=== PATIENT | female | born 1975 | race American Indian/Alaskan Native ===

== ENCOUNTER 2017-04-29 10:17 | Outpatient (CLI) | payer OTHER ==
[2017-04-29 11:49] LABS: Bilirubin,Urine NEG (Negative); Blood,Urine NEG (Negative); Ketones,Urine TR mg/dL (Negative); Leukocyte Esterase,Urine NEG (Negative); Mucus,Urine FEW /HPF; Nitrite,Urine NEG (Negative); Protein,Urine <15 mg/dL mg/dL (Negative); Urobilinogen,Urine < 2.0 mg/dL (<2.0)
[2017-04-29 11:51] LABS: Hematocrit 29.3 % (30.3-42.9); Hemoglobin 8.9 gm/dl (10.1-14.3); Mean Corpuscular HGB Conc 30 % (30-34); Red Blood Count 4.73 M/mm3 (3.65-5.03); White Blood Count 7.5 K/mm3 (4.5-11.0)
[2017-04-29 11:55] LABS: Mean Corpuscular Hemoglobin 19 pg (28-32); Mean Corpuscular Volume 62 fl (79-97); Red Cell Distribution Width 21.4 % (13.2-15.2)
[2017-04-29 12:04] LABS: Lactate Dehydrogenase 218 units/L (91-180); Uric Acid 4.2 mg/dL (3.5-7.6)
[2017-04-29 12:23] LABS: Platelet Count 265 K/mm3 (140-440)
[2017-04-29 12:31] VITALS: BP 122/79
== END 2017-04-29 12:40 | disposition home or self-care (01) ==
LOC: TRG 10:17
PROVIDERS: ATTEND Obstetrics & Gynecology
DX: O09.523 Supervision of elderly multigravida, third trimester (principal); Z3A.38 38 weeks gestation of pregnancy
CPT/HCPCS: 36415; 59025; 81001; 82565; 83615; 84450; 84460; 84550; 85027

== ENCOUNTER 2017-05-12 11:49 | Outpatient (CLI) | payer OTHER ==
[2017-05-12 12:20] VITALS: BP 120/73
== END 2017-05-12 13:43 | disposition home or self-care (01) ==
LOC: TRG 11:49
PROVIDERS: ATTEND Obstetrics & Gynecology
DX: O09.523 Supervision of elderly multigravida, third trimester (principal); O48.0 Post-term pregnancy; Z3A.40 40 weeks gestation of pregnancy

== ENCOUNTER 2017-05-13 09:48 | Inpatient (IN) | payer OTHER ==
[2017-05-13] MEDS ORDERED: BENADRYL IV PRN (10:52)
[2017-05-13] MEDS ORDERED: PHENERGAN PR PRN (10:52)
[2017-05-13] MEDS ORDERED: MORPHINE IV PRN (10:52)
[2017-05-13] MEDS ORDERED: ZOFRAN IV PRN (10:52)
[2017-05-13] MEDS: LACTATED RINGERS 1,000 ML IV SCH ×2 (10:52→11:42)
[2017-05-13] MEDS ORDERED: NARCAN 0.4 MG/1 ML IV PRN ×2 (10:52→13:20)
--- NOTE | 2017-05-13 10:52 | Anesthesia Consultation ---
Anesthesia Consult and Med Hx Date of service: 05/13/17 - Airway Anesthetic Teeth Evaluation: Good ROM Head & Neck: Adequate Mental/Hyoid Distance: Adequate Mallampati Class: Class II Intubation Access Assessment: Probably Good - Pre-Operative Health Status ASA Pre-Surgery Classification: ASA2 Proposed Anesthetic Plan: Epidural, Spinal - Pulmonary Hx Asthma: No COPD: No Hx Pneumonia: No - Cardiovascular System Hx Hypertension: No - Central Nervous System Hx Seizures: No Hx Psychiatric Problems: No - Endocrine Hx Renal Disease: No Hx End Stage Renal Disease: No Hx Hypothyroidism: No Hx Hyperthyroidism: No - Hematic Hx Anemia: Yes Hx Sickle Cell Disease: No - Other Systems Hx Alcohol Use: No
[2017-05-13] MEDS ORDERED: TORADOL IV PRN (10:53)
--- NOTE | 2017-05-13 10:54 | Anesthesia Day of Surgery ---
Anesthesia Day of Surgery - Day of Surgery Patient Examined: Yes Patient H&P Reviewed: Yes Patient is NPO: Yes
[2017-05-13] MEDS ORDERED: PEPCID IV NR (11:00)
[2017-05-13] MEDS ORDERED: PITOCin/NS 20 UNIT/1000ML DRIP 20 UNITS/1,000 ML BAG IV SCH ×2 (11:00→14:00)
[2017-05-13] MEDS ORDERED: REGLAN IV NR (11:00)
[2017-05-13] MEDS ORDERED: SODIUM CHLORIDE FLUSH SYRINGE 10 ML IV SCH ×2 (11:00→14:00)
[2017-05-13] MEDS ORDERED: ANCEF/STERILE WATER 2 GM/20 ML 2 GM/20 ML SYRINGE IV NR (11:00)
[2017-05-13] MEDS ORDERED: BICITRA PO NR (11:00)
[2017-05-13 11:28] LABS: Basophils % (Auto) 0.5 % (0.0-1.8); Eosinophils % (Auto) 0.7 % (0.0-4.3); Mean Corpuscular HGB Conc 30 % (30-34); Red Blood Count 4.84 M/mm3 (3.65-5.03); White Blood Count 8.2 K/mm3 (4.5-11.0)
[2017-05-13 11:30] LABS: Mean Corpuscular Hemoglobin 19 pg (28-32); Mean Corpuscular Volume 62 fl (79-97); Platelet Count 246 K/mm3 (140-440); Red Cell Distribution Width 22.1 % (13.2-15.2)
[2017-05-13] MEDS ORDERED: MORPHINE ONE (12:02)
[2017-05-13] MEDS ORDERED: WATER FOR IRRIG STERILE IR ONE (12:05)
[2017-05-13] MEDS ORDERED: NACL 0.9% IR ONE (12:05)
--- NOTE | 2017-05-13 12:27 | History and Physical Report ---
History of Present Illness Date of examination: 05/13/17 Date of admission: 05/13/17 09:48 Chief complaint: Repeat C Section with BTL History of present illness: Pt is a 41yo BF EDC 05/10/17; EGA 40 3/7 weeks presents for a Repeat C Section with BTL. She received care at [facility] since 11 weeks and course has been complicated by uterine fibroids for which she see's [facility],and previous C Section x 1. records are available and GBS is Negative. Past History Past Medical History: no pertinent history Past Surgical History: section [employer] History: fibroids Social history: no significant social history, - Obstetrical History Expected Date of Delivery: 05/10/17 Actual Gestation: 40 Week(s) 3 Day(s) : 3 Medications and Allergies Allergies Allergy/AdvReac Type Severity Reaction Status Date / Time No Known Allergies Allergy Verified 05/13/17 10:09 Home Medications Medication Instructions Recorded Confirmed Last Taken Type No Known Home Medications [No 05/12/17 05/13/17 Unknown History Reported Home Medications] Active Meds: Active Medications Citric Acid/Sodium Citrate (Bicitra) 30 ml PO ONCE NR Stop: 05/13/17 19:00 Last Admin: 05/13/17 11:43 Dose: 30 ml Diphenhydramine HCl (Benadryl) 12.5 mg IV Q2H PRN PRN Reason: Itching Famotidine (Pepcid) 20 mg IV ONCE NR Stop: 05/13/17 19:00 Last Admin: 05/13/17 11:43 Dose: 20 mg Cefazolin Sodium (Ancef/Sterile Water 2 Gm/20 Ml) 2 gm in 20 mls @ 80 mls/hr IV PREOP NR PRN Reason: Protocol Stop: 05/13/17 19:00 Lactated Ringer's (Lactated Ringers) 1,000 mls @ 2,250 mls/hr IV PREOP SHRUTHI Stop: 05/14/17 11:27 Last Admin: 05/13/17 11:42 Dose: 2,250 mls/hr Oxytocin/Sodium Chloride (Pitocin/Ns 20 Unit/1000ml Drip) 20 units in 1,000 mls @ 0 mls/hr IV TITR SHRUTHI PRN Reason: As Directed Ketorolac Tromethamine (Toradol) 30 mg IV Q6H PRN PRN Reason: Pain, Moderate (4-6) Stop: 05/18/17 10:52 Metoclopramide HCl (Reglan) 10 mg IV ONCE NR Stop: 05/13/17 19:00 Last Admin: 05/13/17 11:43 Dose: 10 mg Morphine Sulfate (Morphine) 2.5 mg IV Q15M PRN PRN Reason: Breakthrough Pain Naloxone HCl (Narcan 0.4 Mg/1 Ml) 0.2 mg IV Q2MIN PRN PRN Reason: Res Rate </= 8 or 02 SAT < 92% Ondansetron HCl (Zofran) 4 mg IV Q8H PRN PRN Reason: Nausea And Vomiting Promethazine HCl (Phenergan) 25 mg NC Q6H PRN PRN Reason: Nausea And Vomiting Sodium Chloride (Sodium Chloride Flush Syringe 10 Ml) 10 ml IV PRN SHRUTHI Review of Systems All systems: negative - Vital Signs Vital signs: Vital Signs Temp Pulse Resp Pulse Ox 98.2 F 87 20 99 05/13/17 10:00 05/13/17 10:00 05/13/17 10:00 05/13/17 10:00 Temp Pulse Resp BP Pulse Ox 98.2 F 83 20 136/85 99 05/13/17 10:00 05/13/17 10:51 05/13/17 10:00 05/13/17 10:51 05/13/17 10:47 - Physical Exam Breasts: Positive: deferred Cardiovascular: Regular rate Lungs: Positive: Clear to auscultation Abdomen: Positive: normal appearance Genitourinary (Female): Positive: normal external genitalia Uterus: Positive: enlarged Extremities: Positive: normal - Obstetrical FHR: category 1 Uterine Contraction Monitor Mode: External Results Result Diagrams: 05/13/17 10:00 Abnormal lab results 05/13/17 Range/Units 10:00 Hgb 9.0 L (10.1-14.3) gm/dl Hct 30.0 L (30.3-42.9) % MCV 62 L (79-97) fl MCH 19 L (28-32) pg RDW 22.1 H (13.2-15.2) % [place] % (Auto) 8.6 H (0.0-7.3) % All other labs normal.
[2017-05-13] MEDS ORDERED: NACL 0.9% 1000 ML 1,000 ML ONE (12:56)
[2017-05-13] MEDS ORDERED: TUCKS PAD TP PRN (13:20)
[2017-05-13] MEDS ORDERED: MYLICON PO PRN (13:20)
[2017-05-13] MEDS ORDERED: TYLENOL PO PRN (13:20)
[2017-05-13] MEDS ORDERED: SENOKOT PO PRN (13:20)
[2017-05-13] MEDS ORDERED: PERCOCET 5/325 PO PRN (13:20)
[2017-05-13] MEDS ORDERED: LANSINOH TP PRN (13:20)
[2017-05-13] MEDS ORDERED: MOTRIN PO PRN (13:20)
[2017-05-13] MEDS ORDERED: NORCO 5/325 PO PRN (13:20)
[2017-05-13] MEDS ORDERED: MILK OF MAGNESIA PO PRN (13:20)
--- NOTE | 2017-05-13 13:25 | Operative Report ---
Operative Report Operative Report: Date of procedure: 05/13/2017 Pre-operative diagnosis: 1. Intrauterine at 40-3/7 weeks 2. Previous 3. Advanced maternal age 4. Uterine fibroids Post-operative diagnosis: Same Procedure name(s): Repeat low transverse section Surgeon: Olu Pineda MD Cinder Block Mason: None Anesthesia: Spinal anesthesia by Dr. Henderson EBL: 800 mL's Findings: A 4208 g male infant Apgars 8 at 1 minute 9 at 5 minutes. Clear amniotic fluid. Normal uterus with uterine fibroids. Normal tubes and ovaries bilaterally. Procedure: After the patient was prepped and draped in usual sterile fashion, and after satisfactory level of epidural anesthesia was obtained, the skin knife was used to make a transverse skin incision through the previous skin scar. The incision was excised down to layer of the fascia, which was nicked in the midline and extended laterally using the Bovie cautery. The rectus muscles were dissected off the rectus fascia both superiorly and inferiorly. The rectus bellies in the midline, and the peritoneum was entered under direct visualization. The peritoneal incision was extended superiorly and inferiorly. A bladder flap was created and the bladder blade was then placed. The uterus was scored in a curvilinear linear fashion, entered in the midline revealing clear amniotic fluid. The 's head was delivered onto the surgical field, and the oropharynx and nasopharynx were bulb suctioned. The rest of the infant's body was delivered, cord was doubly clamped and cut and the was handed to the waiting respiratory team. The placenta was manually removed from the uterus, and the uterus removed from its normal anatomical position. After gentle uterine lavage, the incision was inspected and found to be without extensions. It was then closed in 2 layers using 0 Vicryl suture in a running interlocking fashion, the second layer imbricating the first. After good hemostasis was achieved, copious amounts or irrigation was performed, and the gutters were suctioned free of blood and blood clots. The Tisseel sealant was sprayed across the uterine incision. The uterus was then returned to its normal anatomical position, and after excellent hemostasis assured, the peritoneum was re-approximated using 3-0 Vicryl suture in a running interlocking fashion, and then the rectus muscles were re-approximated using 3-0 Vicryl suture in a [id number] configuration. The fascia was then re-approximated using 0 Vicryl suture in running interlocking fashion. The subcutaneous layer was made hemostatic using Bovie cautery, the Tisseel sealant was sprayed across the fascial incision and the skin edges re- approximated using 4-0 Vicryl suture in a sub-cuticular fashion. Patient tolerated the procedure well was transported to recovery in stable condition.
[2017-05-13] MEDS ORDERED: D5LR 1,000 ML IV SCH (14:00)
[2017-05-13] MEDS ORDERED: NEO SYNEPHRINE/NS Syringe(OR USE) IV ONE (14:30)
[2017-05-13] MEDS ORDERED: ANCEF/NS 1 GM/50 ML 1 GM/50 ML BAG IV SCH (16:00)
--- NOTE | 2017-05-13 16:00 | Post Anesthesia Evaluation ---
- Post Anesthesia Evaluation Patient Participated: Yes Airway Patent: Yes Stable Respiratory Function: Yes Nausea/Vomiting: No Temp > 96.8F: Yes Pain Manageable: Yes Adequeate Hydration: Yes Anesthesia Complications: No Block Receding Appropriately: Yes Patient on Ventilator: No
[2017-05-13] MEDS: ceFAZolin 1 GM in NACL 0.9% 20 ML IV SCH (17:35)
[2017-05-14] MEDS: ceFAZolin 1 GM in NACL 0.9% 20 ML IV SCH (01:35)
[2017-05-14 01:41] LABS: Hematocrit 25.4 % (30.3-42.9); Hemoglobin 7.8 gm/dl (10.1-14.3)
[2017-05-14] MEDS ORDERED: BOOSTRIX IM ONE (06:00)
--- NOTE | 2017-05-14 09:23 | Progress Note ---
Assessment and Plan - Patient Problems (1) Status post repeat low transverse section Onset Date: 05/14/17 Current Visit: Yes Status: Resolved Plan to address problem: A: S/P Repeat C Section - POD #1 Doing well Acute blood loss anemia - stable P: Continue RPOC Anticipate discharge in 24-48hrs (2) Acute blood loss anemia Onset Date: 05/14/17 Current Visit: Yes Status: Resolved Subjective - Subjective Date of service: 05/14/17 Principal diagnosis: s/p Repeat C Section - POD #1 Interval history: Pt is feeling well without complaints, tolerating a liquid diet without nausea or vomiting. Patient reports: appetite normal, voiding normally, pain well controlled, flatus , ambulating normally : doing well, nursing well Objective - Vital Signs Latest vital signs: Vital Signs Temp Pulse Resp BP BP Pulse Ox 05/14/17 04:45 98.5 F 114 H 20 137/79 94 05/14/17 00:40 99.4 F 116 H 20 131/77 97 05/13/17 14:53 97.9 F 91 H 18 117/72 97 05/13/17 14:30 97.6 F 05/13/17 14:25 100 H 13 120/77 98 05/13/17 14:19 109 H 14 140/82 98 05/13/17 14:13 86 16 115/69 100 05/13/17 14:07 80 13 112/67 97 05/13/17 14:01 85 12 111/65 97 05/13/17 14:00 97.5 F L 101 H 16 118/68 05/13/17 13:27 97.0 F L 16 108/58 98 05/13/17 10:51 83 136/85 05/13/17 10:50 90 140/89 05/13/17 10:47 92 H 99 05/13/17 10:42 88 99 05/13/17 10:37 90 100 05/13/17 10:32 91 H 100 05/13/17 10:27 95 H 99 05/13/17 10:22 89 99 05/13/17 10:17 84 100 05/13/17 10:12 87 99 05/13/17 10:08 85 136/86 05/13/17 10:07 93 H 99 05/13/17 10:00 98.2 F 87 20 99 Intake and Output 05/13/17 05/14/17 05/14/17 22:59 06:59 14:59 Intake Total 240 Output Total 950 Balance -710 Intake: Oral 240 Output: Urine 950 Indwelling Catheter 500 Void 450 Other: Total, Intake Amount 120 Total, Output Amount 450 - Exam Breasts: Present: deferred Cardiovascular: Present: Regular rate Lungs: Present: Clear to auscultation Abdomen: Present: normal appearance Uterus: Present: normal, firm, fundal height below umbilicus Extremities: Present: normal Incision: Present: normal, dry, intact, dressed - Labs Labs: Abnormal lab results 05/13/17 05/14/17 Range/Units 10:00 01:06 Hgb 9.0 L 7.8 L (10.1-14.3) gm/dl Hct 30.0 L 25.4 L (30.3-42.9) % MCV 62 L (79-97) fl MCH 19 L (28-32) pg RDW 22.1 H (13.2-15.2) % [place] % (Auto) 8.6 H (0.0-7.3) % Laboratory Tests 05/13/17 05/13/17 05/14/17 10:00 10:00 01:06 WBC 8.2 RBC 4.84 Hgb 9.0 L 7.8 L Hct 30.0 L 25.4 L MCV 62 L MCH 19 L MCHC 30 RDW 22.1 H Plt Count 246 Lymph % (Auto) 28.5 [place] % (Auto) 8.6 H Eos % (Auto) 0.7 Baso % (Auto) 0.5 Lymph # 2.3 [place] # 0.7 Eos # 0.1 Baso # 0.0 Seg Neutrophils % 61.7 Seg Neutrophils # 5.1 Blood Type A POSITIVE Antibody Screen Negative
[2017-05-14] MEDS: FEOSOL PO SCH (10:00)
[2017-05-14] MEDS: PRENATAL VITAMIN PO SCH (10:00)
[2017-05-14] MEDS ORDERED: M-M-R II VACCINE SUB-Q ONE (13:22)
--- NOTE | 2017-05-14 14:26 | Progress Note ---
Subjective Date of service: 05/14/17 Principal diagnosis: s/p Repeat C Section - POD #1 Interval history: 1st POD after Patient is in the bed, comfortable. Pain is well controlled with pain meds. Ambulated well. No residual neurological deficit. No anesthesia complications Objective - Constitutional Vitals: Vital Signs - 12hr 05/14/17 05/14/17 05/14/17 04:44 04:45 08:31 Temperature 98.5 F 99.8 F H Pulse Rate 116 H 114 H 111 H Respiratory 20 18 Rate Blood Pressure 137/79 130/72 Blood Pressure 137/79 [Left] O2 Sat by Pulse 94 94 97 Oximetry - Labs CBC & Chem 7: 05/14/17 01:06 Labs: Abnormal lab results 05/14/17 Range/Units 01:06 Hgb 7.8 L (10.1-14.3) gm/dl Hct 25.4 L (30.3-42.9) %
[2017-05-15] MEDS ORDERED: BOOSTRIX IM ONE (06:05)
--- NOTE | 2017-05-15 10:42 | Progress Note ---
Assessment and Plan - Patient Problems (1) Status post repeat low transverse section Onset Date: 05/14/17 Current Visit: Yes Status: Resolved Plan to address problem: A: S/P Repeat C Section - POD #2 Doing well Acute blood loss anemia - stable P: May go home today. (2) Acute blood loss anemia Onset Date: 05/14/17 Current Visit: Yes Status: Resolved Subjective - Subjective Date of service: 05/15/17 Principal diagnosis: s/p Repeat C Section - POD #2 Interval history: Pt is feeling well without complaints, tolerating a reg diet without nausea or vomiting, ambulating and voiding without difficulty. Patient reports: appetite normal, voiding normally, pain well controlled, flatus , ambulating normally, no nauseated [place]: doing well, nursing well Objective - Vital Signs Latest vital signs: Vital Signs Temp Pulse Resp BP Pulse Ox 05/15/17 07:34 98.5 F 98 H 18 124/71 05/15/17 00:15 98.6 F 71 16 114/68 05/14/17 16:00 98.6 F 101 H 18 132/78 96 Intake and Output 05/14/17 05/15/17 05/15/17 22:59 06:59 14:59 Intake Total 300 Balance 300 Intake: Intake, Free Water 300 - Exam Breasts: Present: deferred Cardiovascular: Present: Regular rate Lungs: Present: Clear to auscultation Abdomen: Present: normal appearance Uterus: Present: normal, firm, fundal height below umbilicus Extremities: Present: normal Incision: Present: normal, dry, intact
--- NOTE | 2017-05-15 11:36 | Discharge Summary ---
Providers - Providers Date of Admission: 05/13/17 09:48 Date of discharge: 05/15/17 Attending physician: REJI SAMUELS Primary care physician: WILBERT WEAVER Hospitalization Reason for admission: section, IUP at term Delivery: Procedure: section, repeat low transverse Episiotomy: none Laceration: none Incision: normal, dry, intact Other procedures: none complications: none Discharge diagnosis: IUP at term delivered Mina baby: male Hospital course: Pt is a 41yo BF EDC 05/10/17; EGA 40 3/7 weeks who presented for a Repeat C Section. She underwent an uncomplicated Repeat C Section which she tolerated well, and by POD #2 she was tolerating a reg diet without nausea or vomiting, ambulating and voiding without difficulty. She was therefore discharged to home on POD #2 in stable condition. Condition at discharge: Good Disposition: DC-01 TO HOME OR SELFCARE - Discharge Diagnoses (1) Status post repeat low transverse section Status: Resolved (2) Acute blood loss anemia Status: Resolved Plan - Discharge Medications Prescriptions: Ferrous Sulfate [Feosol 325 MG tab] 325 mg PO BID #60 tablet HYDROcodone/APAP 5-325 [[place] 5/325] 1 each PO Q6HR PRN #30 tablet PRN Reason: Pain Ibuprofen [Motrin] 800 mg PO Q8HR PRN #30 tablet PRN Reason: Moder Pain Unrelieved By [place] Vit Calc,Iron,Folic [ Vitamins] 1 each PO DAILY #30 tablet - Provider Discharge Summary Activity: routine, no sex for 6 weeks, no heavy lifting 4 weeks, no strenuous exercise Diet: routine Instructions: routine Additional instructions: [] Smoking cessation referral if applicable(refer to patient education folder for contact #) [] Refer to [facility] Booklet Call your doctor immediately for: * Fever > 100.5 * Heavy vaginal bleeding ( >1 pad per hour) * Severe persistent headache * Shortness of breath * Reddened, hot, painful area to leg or breast * Drainage or odor from incision. * Keep incision clean and dry at all times and follow doctor's instructions regarding bathing/showering - Follow up plan Follow up: WILBERT WEAVER MD [Primary Care Provider] - 14 Days
[2017-05-15] MEDS: PRENATAL VITAMIN PO SCH (12:40)
[2017-05-15] MEDS: FEOSOL PO SCH (12:40)
[2017-05-15 16:20] VITALS: BP 128/76
== END 2017-05-15 16:33 | disposition home or self-care (01) | DRG 765 ==
LOC: APU 09:48 → OB 15:14
PROVIDERS: ADMIT Obstetrics & Gynecology; ATTEND Obstetrics & Gynecology
PROC: 10D00Z1 Extraction of Products of Conception, Low, Open Approach (ICD-10-PCS; principal; 2017-05-13)
PROC: 3E0234Z Introduction of Serum, Toxoid and Vaccine into Muscle, Percutaneous Approach (ICD-10-PCS; 2017-05-14)
DX: O34.211 Maternal care for low transverse scar from previous cesarean delivery (principal); D62 Acute posthemorrhagic anemia; O34.13 Maternal care for benign tumor of corpus uteri, third trimester; D25.9 Leiomyoma of uterus, unspecified; Z3A.40 40 weeks gestation of pregnancy; Z37.0 Single live birth; Z23 Encounter for immunization
CPT/HCPCS: 36415; 59025; 85014; 85018; 85025; 86850; 86900; 86901; 90471; 90715; 96360; 99211; C9250; G0463; J0690; J1885; J2270; J2370; J2405; J2590; J2765; J7030; J7120

== ENCOUNTER 2019-08-19 16:34 | Inpatient (IN) | payer OTHER, MEDICAID ==
[2019-08-19 17:04] LABS: Bacteria,Urine 1+ /HPF (Negative); Bilirubin,Urine NEG (Negative); Blood,Urine NEG (Negative); Color,Urine Yellow (Yellow); Mucus,Urine 2+ /HPF; Urobilinogen,Urine < 2.0 mg/dL (<2.0)
[2019-08-19] MEDS ORDERED: LACTATED RINGERS 1,000 ML ONE ×2 (17:45→19:12)
[2019-08-19 17:50] LABS: Hematocrit 29.6 % (30.3-42.9); Mean Corpuscular HGB Conc 30 % (30-34); Red Blood Count 4.71 M/mm3 (3.65-5.03)
[2019-08-19 17:51] LABS: Mean Corpuscular Volume 63 fl (79-97); Red Cell Distribution Width 20.2 % (13.2-15.2)
[2019-08-19 18:01] LABS: Alanine Aminotransferase 9 units/L (7-56); Uric Acid 4.1 mg/dL (3.5-7.6)
[2019-08-19 18:35] LABS: Platelet Count 281 K/mm3 (140-440)
[2019-08-19] MEDS ORDERED: BICITRA ORAL LIQD 30ML PO ONE (19:37)
[2019-08-19] MEDS ORDERED: FAMOTIDINE 20 MG/2 ML INJ IV ONE (19:37)
[2019-08-19] MEDS ORDERED: METOCLOPRAMIDE 10 MG/2 ML INJ IV ONE (19:37)
--- NOTE | 2019-08-19 19:58 | Anesthesia Consultation ---
Anesthesia Consult and Med Hx Date of service: 08/19/19 - Airway Anesthetic Teeth Evaluation: Good ROM Head & Neck: Adequate Mental/Hyoid Distance: Adequate Mallampati Class: Class II Intubation Access Assessment: Probably Good - Pulmonary Exam CTA: Yes - Cardiac Exam Cardiac Exam: RRR - Pre-Operative Health Status ASA Pre-Surgery Classification: ASA3 Proposed Anesthetic Plan: Spinal - Pulmonary Hx Asthma: No COPD: No Hx Pneumonia: No - Cardiovascular System Hx Hypertension: Yes (Pre-eclampsia) - Central Nervous System Hx Seizures: No Hx Psychiatric Problems: No - Endocrine Hx Renal Disease: No Hx End Stage Renal Disease: No Hx Hypothyroidism: No Hx Hyperthyroidism: No - Hematic Hx Anemia: Yes Hx Sickle Cell Disease: No - Other Systems Hx Alcohol Use: No
--- NOTE | 2019-08-19 19:59 | Anesthesia Day of Surgery ---
Anesthesia Day of Surgery - Day of Surgery Patient Examined: Yes Patient H&P Reviewed: Yes Patient is NPO: Yes
[2019-08-19] MEDS ORDERED: ceFAZolin/Water 2 GM/20 ML 2 GM/20 ML SYRINGE IV NR (20:00)
[2019-08-19] MEDS ORDERED: LACTATED RINGERS 1,000 ML IV SCH (20:00)
[2019-08-19] MEDS ORDERED: OXYTOCIN 20 UNIT/1000ML DRIP 20 UNITS/1,000 ML BAG IV SCH ×2 (20:00→23:51)
--- NOTE | 2019-08-19 21:11 | History and Physical Report ---
History of Present Illness Date of examination: 08/19/19 Date of admission: 08/19/19 16:43 Chief complaint: I'm here for a Past History - Obstetrical History : 3 Medications and Allergies Allergies Allergy/AdvReac Type Severity Reaction Status Date / Time No Known Allergies Allergy Verified 05/13/17 10:09 Home Medications Medication Instructions Recorded Confirmed Last Taken Type Ferrous Sulfate [Feosol 325 MG tab] 325 mg PO BID #60 tablet 05/13/17 Unknown Rx HYDROcodone/APAP 5-325 [[place] 1 each PO Q6HR PRN #30 tablet 05/13/17 Unknown Rx 5/325] Ibuprofen [Motrin] 800 mg PO Q8HR PRN #30 tablet 05/13/17 Unknown Rx Vit Calc,Iron,Folic 1 each PO DAILY #30 tablet 05/13/17 Unknown Rx [ Vitamins] Active Meds: Active Medications Oxytocin/Sodium Chloride (Pitocin/Ns 20 Unit/1000ml Drip) 20 units in 1,000 mls @ 0 mls/hr IV TITR SHRUTHI Lactated Ringer's (Lactated Ringers) 1,000 mls @ 2,250 mls/hr IV PREOP SHRUTHI Stop: 08/20/19 20:27 Last Admin: 08/19/19 20:08 Dose: 2,250 mls/hr Documented by: Cefazolin Sodium (Ancef/Sterile Water 2 Gm/20 Ml) 2 gm in 20 mls @ 80 mls/hr IV PREOP NR; Protocol Stop: 08/19/19 23:59 Last Admin: 08/19/19 20:08 Dose: 80 mls/hr Documented by: - Vital Signs Vital signs: Vital Signs Temp Pulse Resp BP Pulse Ox 98.4 F 101 H 20 152/81 96 08/19/19 17:01 08/19/19 17:01 08/19/19 17:01 08/19/19 17:01 08/19/19 17:01 Temp Pulse Resp BP Pulse Ox 98.2 F 102 H 16 138/81 99 08/19/19 19:14 08/19/19 20:35 08/19/19 19:14 08/19/19 20:22 08/19/19 20:35 - Physical Exam Breasts: Positive: normal Cardiovascular: Regular rate, Normal S1, Normal S2 Lungs: Positive: Clear to auscultation, Normal air movement Abdomen: Positive: normal appearance, soft, normal bowel sounds Genitourinary (Female): Positive: normal external genitalia, normal perenium Vulva: both: normal Vagina: Positive: normal moisture Uterus: Positive: enlarged - Obstetrical FHR: auscultation normal Results Result Diagrams: 08/19/19 17:15 08/19/19 17:15 Abnormal lab results 08/19/19 08/19/19 Range/Units 17:15 17:15 Hgb 9.0 L (10.1-14.3) gm/dl Hct 29.6 L (30.3-42.9) % MCV 63 L (79-97) fl MCH 19 L (28-32) pg RDW 20.2 H (13.2-15.2) % Creatinine 0.5 L (0.7-1.2) mg/dL Lactate Dehydrogenase 261 H (91-180) units/L All other labs normal.
[2019-08-19] MEDS ORDERED: BUPIVACAINE/PF (0.5%) 5 MG/1 ML 30 ML VIAL INFILTRATI ONE (21:29)
[2019-08-19] MEDS ORDERED: KETOROLAC 30 MG/1 ML INJ ONE (21:29)
[2019-08-19] MEDS ORDERED: PHENYLEPHRINE/NS 1,000 MCG/10 ML SYRINGE (OR USE) IV ONE (21:29)
[2019-08-19] MEDS ORDERED: ONDANSETRON 4 MG/2 ML INJ ONE (21:29)
[2019-08-19] MEDS ORDERED: OXYTOCIN 10 UNIT/1 ML INJ ONE (21:29)
[2019-08-19] MEDS ORDERED: DEXMEDETOMIDINE 200 MCG/2 ML VIAL IV ONE (21:29)
[2019-08-19] MEDS ORDERED: ceFAZolin/STERILE WATER 2 GM/20 ML SYRINGE IV ONE (21:36)
[2019-08-19] MEDS ORDERED: SODIUM CHLORIDE 0.9% 500 ML 500 ML ONE (21:40)
--- NOTE | 2019-08-19 22:46 | Post Anesthesia Evaluation ---
- Post Anesthesia Evaluation Patient Participated: Yes Airway Patent: Yes Stable Respiratory Function: Yes Nausea/Vomiting: No Temp > 96.8F: Yes Pain Manageable: Yes Adequeate Hydration: Yes Anesthesia Complications: No Block Receding Appropriately: Yes
--- NOTE | 2019-08-19 22:47 | Procedure Note ---
OB Delivery Note - Delivery Date of Delivery: 08/19/19 Surgeon: JAVIER HERNADEZ Estimated blood loss: 500cc - Section Preop diagnosis: repeat , desires sterilization Postop diagnosis: same section procedure: repeat low transverse, bilateral tubal ligation Disposition: PACU Complications: none Narrative: see op report - Infant A at 1 minute: 5 at 5 minutes: 9 Gender: Male (3213 g/ 7 pounds 1 ounce)
--- NOTE | 2019-08-19 22:53 | Operative Report ---
Operative Report Operative Report: Preoperative diagnosis: Intrauterine at 38 and 6 weeks 2. Gestational hypertension at term 3. Previous x2 4. Undesired fertility Postoperative diagnosis: Same Procedure: Repeat low transverse section, Bilateral tubal ligation Surgeon: Dr. Kamilah Quinonez EBL: 500 cc Urine output: 200 mL IV fluids: 1100 cc mL Findings: Viable male in the vertex position. Weight 7 lbs. 1 oz. 3682 g Apgars 8 and 9. Otherwise normal pelvic anatomy Specimens: Portion of right and left fallopian tube Complications: None Procedure: The patient was admitted to the OR with IV running and in place. She was properly identified as herself. She was given spinal anesthesia in the OR without difficulty. She was placed in the dorsal supine position with a leftward tilt. A Valverde catheter was inserted. She was then prepped and draped in the normal sterile fashion. An Allis test was used to confirm adequate anesthesia. Once confirmed, the incision was made with the scalpel and carried to the underlying fascia using the scalpel and the Bovie. The fascia was incised in the midline and incision was extended bilaterally using the curved Casarez scissors. The fascia was then dissected from the underlying rectus muscles in a series of sharp and blunt dissection using the Casarez scissors. Muscles were in the in the midline sharply using Metzenbaum scissors and the peritoneum was entered into bluntly using the surgeon's fingers. A bladder blade was then placed into the incision to protect the bladder. Following this the bladder flap was created. Hysterotomy incision was then made in the scal pel. Upon uterine entry, the amniotic sac was ruptured for clear fluid. The infant was then delivered without difficulty.. His mouth and nose were suctioned on the field. The cord was clamped and cut and he was handed to the waiting NICU personnel. The uterus was then exteriorized and cleared of all clots and debris. The hysterotomy incision was then closed in a running locked fashion using 0 Vicryl. The abdomen was then copiously irrigated with warm normal saline. Attention was turned the the fallopian tubes. Each tube was identified and followed out the the fimbriated end. Each tube was grasped in the midportion and ligated in the [place] style Tubal ligation. Following this the uterus was replaced into the abdominal cavity. At this point the muscles were reapproximated in the midline using individual sutures of 0 Vicryl. Following this the fascia was closed in a running fashion using 0 Vicryl. Tissue was then copiously irrigated. Retention sutures were placed in the subcutaneous fat tissue Skin was closed in a running fashion using 3-0 Monocryl. The sponge lap needle and instrument counts were correct 2. The patient tolerated the procedure well. She was taken to recovery in stable condition.
[2019-08-19] MEDS ORDERED: ONDANSETRON 4 MG/2 ML INJ IV PRN (23:51)
[2019-08-19] MEDS ORDERED: SENNOSIDES 8.6 MG TAB PO PRN (23:51)
[2019-08-19] MEDS ORDERED: WITCH HAZEL/ GLYCERIN PAD TP PRN (23:51)
[2019-08-19] MEDS ORDERED: D5W/LACTATED RINGERS 1,000 ML IV SCH (23:51)
[2019-08-19] MEDS ORDERED: LANOLIN/ZINC/DIMETHICONE (LANSINOH) 7 GM TP PRN (23:51)
[2019-08-19] MEDS ORDERED: SIMETHICONE 80 MG CHEW TAB PO PRN (23:51)
[2019-08-19] MEDS ORDERED: NALOXONE 0.4 MG/1 ML INJ IV PRN (23:51)
[2019-08-19] MEDS ORDERED: MORPHINE 4 MG/1 ML INJ IV PRN (23:51)
[2019-08-20] MEDS: KETOROLAC 30 MG/1 ML INJ IV PRN ×2 (03:22→16:18)
[2019-08-20] MEDS: oxyCODONE /ACETAMINOPHEN 5-325MG TAB PO PRN ×2 (04:38→23:11)
[2019-08-20] MEDS: PRENATAL VIT27-FE FUMARATE-FOLIC ACID VIT TAB PO SCH (09:48)
[2019-08-20] MEDS: FERROUS SULFATE 325 MG TAB PO SCH (09:48)
[2019-08-20 10:49] LABS: Hematocrit 24.7 % (30.3-42.9); Hemoglobin 7.4 gm/dl (10.1-14.3)
[2019-08-21] MEDS: IBUPROFEN 800 MG TAB PO PRN (06:46)
[2019-08-21] MEDS: PRENATAL VIT27-FE FUMARATE-FOLIC ACID VIT TAB PO SCH (10:38)
[2019-08-21] MEDS: FERROUS SULFATE 325 MG TAB PO SCH (10:38)
--- NOTE | 2019-08-21 11:23 | Progress Note ---
Assessment and Plan A: POD2 s/p repeat LTCS and BTL Gestational hypertension, BP labile mild range to normotensive Acute on chronic anemia due to and blood loss Afebrile P: Routine pp care Liquid Fe per pt preference Monitor BP closely, initiate antihypertensives if consistently elevated Anticipate d/c to home on POD3 Subjective - Subjective Date of service: 08/21/19 Principal diagnosis: s/p repeat c/s and BTL Interval history: POD2 s/p repeat LTCS and BTL. Gestational hypertension Patient reports: appetite normal, voiding normally, pain well controlled, flatus, ambulating normally : doing well, nursing well, bottle feeding (both) Objective - Vital Signs Latest vital signs: Vital Signs Temp Pulse Resp BP BP Pulse Ox 08/21/19 07:21 99.2 F 88 20 151/84 98 08/21/19 00:37 98.5 F 95 H 20 134/78 94 08/20/19 20:40 98.3 F 86 18 137/86 99 08/20/19 16:34 98.9 F 92 H 18 141/89 98 08/20/19 11:40 98.2 F 87 18 139/84 98 Intake and Output 08/20/19 08/21/19 08/21/19 23:59 07:59 15:59 Intake Total 1080 Output Total 500 Balance 580 Intake: Oral 480 Intake, Free Water 600 Output: Urine 500 Void 500 Other: Total, Intake Amount 480 Total, Output Amount 500 # Voids Void 2 - Exam Lungs: Present: Normal air movement Abdomen: Present: soft Uterus: Present: firm, fundal height below umbilicus. Absent: bogginess Extremities: Present: normal Incision: Present: normal, dry, intact
[2019-08-21] MEDS: FERROUS SULFATE 308 MG (62mg Elemental Iron) / 7 ML ELIXIR PO SCH (13:07)
--- NOTE | 2019-08-22 10:40 | Progress Note ---
Assessment and Plan A: POD3 s/p repeat LTCS and BTL Gestational hypertension, BP labile mild range to normotensive Acute on chronic anemia due to and blood loss Afebrile P: Routine pp care Liquid Fe per pt preference Initiate Labetalol Discharge to home today Subjective - Subjective Date of service: 08/22/19 Principal diagnosis: s/p repeat c/s and BTL Interval history: POD3 s/p repeat LTCS and BTL. Gestational hypertension Patient reports: appetite normal, voiding normally, pain well controlled, flatus, ambulating normally : doing well Objective - Vital Signs Latest vital signs: Vital Signs Temp Pulse Resp BP Pulse Ox 08/22/19 07:44 98.7 F 97 H 18 139/76 98 08/22/19 00:35 99.0 F 88 18 140/83 98 Intake and Output 08/21/19 08/22/19 08/22/19 23:59 07:59 15:59 Intake Total 480 240 Balance 480 240 Intake: Oral 480 240 Other: Total, Intake Amount 480 240 # Voids Void 2 1 - Exam Lungs: Present: Normal air movement Abdomen: Present: soft. Absent: distention Uterus: Present: firm, fundal height below umbilicus. Absent: bogginess Extremities: Present: normal Incision: Present: normal, dry, intact
--- NOTE | 2019-08-22 10:45 | Discharge Summary ---
Providers - Providers Date of Admission: 08/19/19 16:43 Date of discharge: 08/22/19 Attending physician: JAVIER HERNADEZ Primary care physician: JAVIER HERNADEZ Hospitalization Reason for admission: section, IUP at term Delivery: Procedure: bilateral tubal ligation, repeat low transverse Episiotomy: none Laceration: none Incision: normal, dry, intact complications: other (anemia) Discharge diagnosis: IUP at term delivered Hospital course: Pt presented for repeat c/s and BTL and was diagnosed with gestational hypertension. course complicated by anemia and mild range BP. Met discharge criteria on POD3. Condition at discharge: Good Disposition: [id number] TO HOME OR SELFCARE Plan - Discharge Medications Prescriptions: Ferrous Sulfate [Ferrous Sulfate Oral Liq 300 Mg/5 Ml] 300 mg PO BID #30 ml labetaloL [Labetalol 100mg TAB] 100 mg PO BID #60 tablet Ibuprofen [Motrin] 800 mg PO Q8HR PRN #30 tablet PRN Reason: Pain, Moderate (4-6) oxyCODONE /ACETAMINOPHEN [Percocet 5/325] 1 tab PO Q6HR PRN #40 tablet PRN Reason: Pain - Provider Discharge Summary Activity: routine, no sex for 6 weeks, no heavy lifting 4 weeks, no strenuous exercise Diet: routine Instructions: routine Additional instructions: [] Smoking cessation referral if applicable(refer to patient education folder for contact #) [] Refer to [facility]'s [facility] Booklet Call your doctor immediately for: * Fever > 100.5 * Heavy vaginal bleeding ( >1 pad per hour) * Severe persistent headache * Shortness of breath * Reddened, hot, painful area to leg or breast * Drainage or odor from incision. * Keep incision clean and dry at all times and follow doctor's instructions regarding bathing/showering - Follow up plan Follow up: JAVIER HERNADEZ MD [Primary Care Provider] - 7 Days (Please call office to schedule appointment.)
[2019-08-22] MEDS: IBUPROFEN 800 MG TAB PO PRN (14:00)
[2019-08-22] MEDS: FERROUS SULFATE 308 MG (62mg Elemental Iron) / 7 ML ELIXIR PO SCH (14:00)
[2019-08-22] MEDS: PRENATAL VIT27-FE FUMARATE-FOLIC ACID VIT TAB PO SCH (14:00)
[2019-08-22] MEDS: oxyCODONE /ACETAMINOPHEN 5-325MG TAB PO PRN (14:00)
[2019-08-22 14:17] VITALS: BP 147/80
== END 2019-08-22 15:15 | disposition home or self-care (01) | DRG 784 ==
LOC: TRG 16:34 → APU 16:43 → OBSVTOIN 16:43 → OB 23:51
PROVIDERS: ADMIT Obstetrics & Gynecology; ATTEND Obstetrics & Gynecology
PROC: 10D00Z1 Extraction of Products of Conception, Low, Open Approach (ICD-10-PCS; principal; 2019-08-19)
PROC: 0UB70ZZ Excision of Bilateral Fallopian Tubes, Open Approach (ICD-10-PCS; 2019-08-19)
DX: O13.4 Gestational [pregnancy-induced] hypertension without significant proteinuria, complicating childbirth (principal); D62 Acute posthemorrhagic anemia; O34.211 Maternal care for low transverse scar from previous cesarean delivery; O14.94 Unspecified pre-eclampsia, complicating childbirth; O90.81 Anemia of the puerperium; Z3A.38 38 weeks gestation of pregnancy; Z37.0 Single live birth; Z30.2 Encounter for sterilization
CPT/HCPCS: 36415; 81001; 82565; 83615; 84450; 84460; 84550; 85014; 85018; 85027; 86850; 86900; 86901; 88302; G0378; J0690; J1885; J2370; J2405; J2590; J2765; J3490; J7040; J7120; J7121